=== PATIENT | female | born 2000 | race Caucasian/White ===

== ENCOUNTER 2023-09-29 12:12 | Emergency (ER) | payer SELFPAY ==
[2023-09-29 12:14] VITALS: BP 128/86
[2023-09-29 12:25] VITALS: BP 126/102
--- NOTE | 2023-09-29 12:39 | ED.GENMED ---
History of Present Illness
General
Chief Complaint: Fall
Source: patient
Exam Limitations: none
Time Seen by Provider: 09/29/23 12:25
Nursing documentation reviewed up to this point in time: agreed with
History of Present Illness
History of Present Illness:
23-year-old female with past medical history of PCOS who presents to the emergency department for evaluation after a fall down the stairs just prior to arrival. [place]pped and fell down a
flight of stairs (estimates 10-15 steps). She says she fell from the top and tumbled all the way to the bottom. She says that she did hit her head but did not lose consciousness. She says that she was able to get up on her own and had some pain
in her left hand but no other immediate pains however after few minutes started to notice pain in her left hip and left knee; she was able to bear weight after the fall. She came to the emergency room to be evaluated. She complains primarily of
pain in her left hand particularly the third digit; she also reports some pain in the left knee and mild pain in the left hip. She denies any headache. Denies any neck pain. Denies any chest or abdominal pain. She denies any back pain. She
reports some mild paresthesias in the area of pain in her left third digit but she denies any numbness or weakness in her extremities. She denies being on any blood thinners.
Review of Systems
Review of Systems
All Other Systems: ROS reviewed and negative except as documented in HPI and ROS
Respiratory: Denies trouble breathing
Cardiac: Denies chest pain
ABD/GI: Denies abdominal pain, nausea or vomiting
: Denies flank pain
Musculoskeletal: Reports joint pain; Denies neck pain or back pain
Neurological: Denies dizzy, headache, weakness or numbness
Phy Exam
Physical Exam
Physical Exam:
General: Awake, alert, oriented x3 with GCS of 15; no acute distress
Head: Normocephalic, atraumatic
Eyes: Conjunctiva normal, EOMI, pupils equal round and reactive to light bilaterally
Throat: Airway intact, handling secretions, tongue atraumatic
Neck: Trachea midline, cervical collar in place, no cervical spine tenderness
Lungs: Breathing comfortably not in distress, bilateral breath sounds
Heart: Regular rate; no chest wall tenderness or sternal tenderness
Abd: Soft, non distended, nontender to deep palpation
Back: No signs of trauma to the back or flank and no midline tenderness in the thoracic or lumbar spine
Neuro: Cranial nerves grossly intact, speech fluid, no motor or sensory deficits
Skin: no rash
Extremities: She has good pulses in all extremities; on exam of her:
Left hand-patient has tenderness to palpation proximal third fourth and fifth digits of the left hand with some ecchymosis on the dorsum of the third digit; she has some tenderness of the distal third fourth and fifth metacarpals on the left; she is
able to make a fist with the left hand; on exam of her left wrist she has no tenderness specifically no tenderness in the snuffbox and she has good range of motion
Left hip-she has a very mild lateral left hip tenderness but no ecchymosis, full active range of motion of the left hip with minimal discomfort
Left knee�patient has bruising and tenderness over the left patella but no left knee joint effusion, no joint line tenderness, full active range of motion left knee with only mild discomfort at extremes of flexion and extension
Rest of extremities�atraumatic, nontender, full active range of motion
Scores
Heart Failure Risk
Heart Failure Risk Score: Not Applicable
Heart Score for Chest Pain Patients
STEMI patient?: Not applicable
Withdrawal Assessment of Alcohol
Withdrawal Assessment Completed?: Not applicable
Course
Orders/Labs/Results
Orders:
Orders
09/29/23 12:26
Vital Signs- Treatment ONCE
Frequency: Once
Comment: repeat temp please
09/29/23 12:37
CT Head W/o Iv Contrast Urgent
Comment:
Reason For Exam: fall down 15 stairs with head strike
CR Hand - Left Min 3 Views Urgent
Comment:
Reason For Exam: fall, pain prox 3/4/5 digit and dorsum hand
CR Knee - Left 4 Or More View* Urgent
Comment:
Reason For Exam: left knee pain (TTP patella) s/p fall
09/29/23 12:38
CT Cervical Spine W/o Iv Contr Urgent
Comment:
Reason For Exam: fall down 15 stairs with head strike
09/29/23 12:39
CR Hip - LT w/wo Pel 2-3 Vw* Urgent
Comment:
Reason For Exam: left hip pain s/p fall
Include a pelvis x-ray?: Yes
09/29/23 12:47
Acetaminophen [Tylenol] 1,000 mg PO NOW STA
Vital Signs
Initial and Last Documented VS:
Initial Vital Signs
Temp Pulse Resp BP Pulse Ox
25.5 C L 78 17 128/86 99
09/29/23 12:14 09/29/23 12:14 09/29/23 12:14 09/29/23 12:14 09/29/23 12:14
Last Documented Vital Signs
Temp Pulse Resp BP Pulse Ox
36.8 C 71 17 130/91 96
09/29/23 12:48 09/29/23 13:51 09/29/23 13:51 09/29/23 13:51 09/29/23 13:00
MDM/Problems Addressed
Differential Diagnosis Includes:
Left hand pain: Fracture, contusion
Left hip pain: Contusion; fracture or dislocation much less likely given exam
Left knee pain: Contusion; fracture, internal derangement somewhat less likely without a joint effusion
MDM/Problems Addressed:
23-year-old female presents for evaluation after a reported trip and fall down 10-15 stairs; complains of pain in left hand, knee, hip. She did have head trauma no loss of consciousness. Cervical collar was applied on arrival. Vital signs are
normal. Physical exam as above. Based on mechanism will check CT head and cervical spine. Will check x-ray of the left hand, left knee, left hip. Provide Tylenol for pain. Reassess after the above.
CT head and cervical spine negative for any acute pathology. X-ray of the hand, knee, hip reviewed by me and show no acute fractures or dislocations. Suspect contusion to the hand and the likely minor strain to the left hip. She is ambulatory
without issue. Stable for discharge advised Tylenol/Motrin as needed. Follow-up with PCP as an outpatient. We also spoke about incidental finding of chronic sinusitis and lymph node enlargement in the neck�will refer to ENT for outpatient
follow-up. Will start on some Flonase. Patient comfortable with this plan. Spoke about return precautions all questions answered.
*Radiology
Radiology exam reviewed: preliminary read by ED provider and radiology read reviewed
*Pulse Oximetry
Patient hypoxic: no
*Critical Care Note
Total Time (30-74mins, 75-104mins- exclusive of procedures): Not Applicable
Data Reviewed
Source: patient
ED Attending Note
-
Portions of this chart may have been created with voice recognition software.� Occasional wrong word or��sound alike� substitutions may have occurred due to the inherent limitations of voice recognition software.
Discharge Plan
Departure
Patient Disposition: Home (Routine Discharge)
Date of Disposition: 09/29/23
Time of Disposition: 15:38
Patient with high blood pressure during this ER visit?: No
Discharge Problem:
Contusion of hand, left, Contusion of knee, left, Strain of left hip, Chronic sinusitis, Enlarged lymph node in neck
Instructions: Contusion (DC), Chronic sinusitis
Prescriptions:
New
fluticasone propionate [Flonase Allergy Relief] 50 mcg/actuation spray,suspension
2 spray intranasal DAILY Qty: 16 0RF
Rx Instructions:
one spray in each nostril once daily
Referrals:
Nawaf Barros DO [Family Provider] - Call in 1-3 days for appt
Rio Butler MD [Active] - Call in 1-3 days for appt (ENT doctor)
Activity Restrictions/Additional Instructions:
Thank you for visiting the Emergency Department at [facility].
1. Please schedule a follow up appointment as directed. Call first thing tomorrow morning to make an appointment.
2. If indicated, please take your medications as instructed and indicated on discharge paperwork.
3. If any of your symptoms do not improve, or persist, or become more severe within 6-12 hours, please return to the emergency department for further care.
4. Please return to the emergency department if you develop a headache, neck pain/stiffness, fever greater than 100.4F, chest pain, shortness of breath, persistent nausea, vomiting, slurred speech, difficulty walking, numbness/tingling, weakness,
signs of infection or any other symptoms that are worrisome to you.
Please call [phone] if you have any questions.
Interventions
Interventions:
*Risk Screen - Suicide Last Done: 09/29/23 12:14
*General Assessment Last Done: 09/29/23 12:14
*Neglect/Abuse Screening Last Done: 09/29/23 12:14
*ED COVID-19 Vaccine History Last Done: 09/29/23 12:48
ED- Neurological Assessment Last Done: 09/29/23 12:49
Discharge Date and Time
Print Language: LITHUANIAN
[2023-09-29 12:47] VITALS: BMI 35.2
[2023-09-29] MEDS: TYLENOL 1000 MG PO (12:54)
[2023-09-29 13:51] VITALS: BP 130/91
[2023-09-29 15:41] VITALS: BP 108/55
== END 2023-09-29 16:51 | disposition home or self-care (01) ==
LOC: EMR 12:12
PROVIDERS: EMERGENCY PHYSICIAN Emergency Medicine; FAMILY PHYSICIAN Internal Medicine
DX: S76.012A Strain of muscle, fascia and tendon of left hip, initial encounter (principal); S09.90XA Unspecified injury of head, initial encounter; R20.2 Paresthesia of skin; R59.0 Localized enlarged lymph nodes; S80.02XA Contusion of left knee, initial encounter; S60.222A Contusion of left hand, initial encounter; J32.9 Chronic sinusitis, unspecified; W10.9XXA Fall (on) (from) unspecified stairs and steps, initial encounter; Y92.240 Courthouse as the place of occurrence of the external cause; E28.2 Polycystic ovarian syndrome; Z88.1 Allergy status to other antibiotic agents; Z88.0 Allergy status to penicillin
CPT/HCPCS: 99284; 70450; 72125; 73130; 73502; 73564

== ENCOUNTER 2024-05-04 06:35 | Day surgery (SDC) | payer OTHER, SELFPAY | END 2024-05-04 13:04 | disposition home or self-care (01) | LOC: GI 06:35 | PROVIDERS: ATTENDING PHYSICIAN Student in an Organized Health Care Education/Training Program | DX: K60.2 Anal fissure, unspecified (principal); K62.5 Hemorrhage of anus and rectum; R19.4 Change in bowel habit | CPT/HCPCS: 45378 ==